=== PATIENT | male | born 1965 | race Caucasian/White ===

== ENCOUNTER 2021-01-31 15:33 | Outpatient (CLI) | payer BC, SELFPAY | END 2021-01-31 15:34 | disposition home or self-care (01) | LOC: ANHCOVIDVC 15:33 | PROVIDERS: PCP Internal Medicine | DX: Z23 Encounter for immunization (principal) | CPT/HCPCS: 0001A; 91300 ==

== ENCOUNTER 2021-02-19 17:18 | Outpatient (CLI) | payer BC, SELFPAY | END 2021-02-19 17:19 | disposition home or self-care (01) | LOC: ANHCOVIDVC 17:19 | PROVIDERS: PCP Internal Medicine | DX: Z23 Encounter for immunization (principal) | CPT/HCPCS: 0002A; 91300 ==